=== PATIENT | male | born 1980 | race Caucasian/White ===

== ENCOUNTER 2020-12-25 06:13 | Emergency (ER) | payer BC ==
[~2020-12-25] VITALS: Ht 188 cm; Wt 121.0 kg
[2020-12-25] MEDS ORDERED: PLEASE ENTER ALLERGIES MC SCH (07:00)
[2020-12-25] MEDS ORDERED: LORazepam 1MG TABLET PO ONE (07:00)
[2020-12-25 07:11] LABS: TROPONIN I < 0.015 ng/mL (0.000-0.045)
[2020-12-25] MEDS ORDERED: LORazepam 1MG TABLET ONE (07:17)
[2020-12-25 07:29] VITALS: BP 154/90
--- NOTE | 2020-12-25 07:30 | NUR ---
40 YO MALE CAME IN AFTER TAKING APPROX 1/4 OF AN "EIGHT BALL" OF COCAINE FOR A BACHELOR DEMOCRAT. PT STATES HR FELT IRRGULAR WHEN HE WAS ATTEMPTING TO FALL ASLEEP AT 4 AM THIS MORNING AND WALKED TO ED FROM [facility]. ' Addendum: 12/25/20 at 0732 by KIRSTIE 40 YO MALE CAME IN AFTER TAKING APPROX 1/4 OF AN "EIGHT BALL" OF COCAINE FOR A BACHELOR DEMOCRAT. PT STATES HR FELT IRRGULAR WHEN HE WAS ATTEMPTING TO FALL ASLEEP AT 4 AM THIS MORNING AND WALKED TO ED FROM [facility]. "TO GET IT CHECKED OUT" PATIENT STATES HE HASN'T DONE COKE FOR 14 YEARS. MEDICATED PER EMAR, CONNECTED TO CARDIAC, BP, AND O2, POSTION TO COMFORT, LIGHTS OFF TO PROMOTE REST
== END 2020-12-25 08:29 | disposition home or self-care (01) ==
LOC: ED 07:45
DX: F41.1 Generalized anxiety disorder (principal); F14.10 Cocaine abuse, uncomplicated; R00.0 Tachycardia, unspecified; R07.89 Other chest pain; Z87.891 Personal history of nicotine dependence
CPT/HCPCS: 36415; 84484; 93005; 99284